=== PATIENT | female | born 1960 | race Caucasian/White ===

== ENCOUNTER 2017-07-02 20:25 | Inpatient (IN) | payer MEDICARE, MEDICAID ==
[~2017-07-02] VITALS: Ht 162.6 cm; Wt 66.7 kg
[2017-07-02] MEDS ORDERED: PHEN30CA PO (20:43)
[2017-07-02] MEDS ORDERED: PRED2.5T PO (20:44)
[2017-07-02] MEDS ORDERED: METH2.5T PO (20:45)
[2017-07-02] MEDS ORDERED: DIPH1TAB PO (20:45)
[2017-07-02] MEDS ORDERED: METO200T5 PO (20:46)
[2017-07-02] MEDS ORDERED: ABAT50SY INJ (20:47)
[2017-07-02] MEDS ORDERED: CHOL400T55 PO (20:47)
[2017-07-02] MEDS ORDERED: FOLI0.4T2 PO (20:48)
[2017-07-02 21:39] LABS: HEMOGLOBIN 15.8 g/dL (11.7-16.4); WHITE BLOOD COUNT 11.5 x10^3/uL (3.4-10)
[2017-07-02 21:47] LABS: ASPARTATE AMINO TRANSFERASE 19 U/L (15-37); BLOOD UREA NITROGEN 9 mg/dL (7-18)
[2017-07-02 21:55] LABS: IS PT STATUS REG ER OR PRE ER? YES
[2017-07-03] MEDS ORDERED: SODIUM CHLORIDE 0.9% 1,000 ML IV ONE (01:03)
[2017-07-03] MEDS ORDERED: ONDANSETRON 2MG/ML, 2ML IVPush PRN ×2 (01:30→02:00)
[2017-07-03] MEDS ORDERED: morphine SULFATE 10 MG/ML, 1ML IVPush PRN ×2 (01:30→02:00)
[2017-07-03] MEDS ORDERED: NS + 20MEQ KCL 1,000 ML IV SCH (01:50)
[2017-07-03] MEDS ORDERED: hydrALAzine 20 MG/ML, 1ML IVPush PRN (02:00)
[2017-07-03] MEDS ORDERED: TRAZODONE 50MG TABLET PO PRN (02:00)
[2017-07-03] MEDS ORDERED: ENOXAPARIN 40 MG/0.4 ML SQ SCH (02:00)
[2017-07-03] MEDS ORDERED: POTASSIUM CHLORIDE 20 MEQ TAB.ER.PRT PO ONE (02:00)
[2017-07-03] MEDS ORDERED: NITROGLYCERIN 0.4 MG BOTTLE (25 TABS) SL PRN (02:00)
[2017-07-03 02:16] VITALS: BP 158/83
[2017-07-03 03:04] LABS: BLOOD UREA NITROGEN 11 mg/dL (7-18)
[2017-07-03 03:29] LABS: IS PT STATUS REG ER OR PRE ER? NO
[2017-07-03] MEDS ORDERED: ALBUTEROL SULFATE 2.5 MG/3 ML NPPB PRN (04:30)
[2017-07-03] MEDS ORDERED: ASPIRIN 325 MG TABLET EC PO SCH (06:00)
[2017-07-03 08:00] VITALS: BP 154/82
[2017-07-03 08:03] LABS: IS PT STATUS REG ER OR PRE ER? NO
[2017-07-03] MEDS ORDERED: REGADENOSON 0.4 MG/5 ML SYRINGE ONE (08:35)
[2017-07-03] MEDS ORDERED: METHOTREXATE 2.5 MG TABLET PO SCH (09:00)
[2017-07-03] MEDS ORDERED: FOLIC ACID 1 MG TABLET PO SCH (09:00)
[2017-07-03] MEDS ORDERED: PHENYTOIN SODIUM 30 MG HOMEMEDPO SCH ×2 (09:00)
[2017-07-03] MEDS ORDERED: CHOLECALCIFEROL 400 UNITS TABLET PO SCH (09:00)
[2017-07-03] MEDS ORDERED: DIPHENOXYLATE/ATROPINE TABLET PO PRN (13:00)
[2017-07-03 14:00] VITALS: BP 144/84
== END 2017-07-03 16:30 | disposition home or self-care (01) | DRG 194 ==
LOC: ED 23:59 → EDIP 07-03 01:03 → 5SO 07-03 02:23
PROVIDERS: ADMIT Hospitalist; ATTEND Hospitalist
DX: J18.9 Pneumonia, unspecified organism (principal); J98.11 Atelectasis; I11.9 Hypertensive heart disease without heart failure; I10 Essential (primary) hypertension; F17.210 Nicotine dependence, cigarettes, uncomplicated; R07.89 Other chest pain; Z88.6 Allergy status to analgesic agent; Z88.8 Allergy status to other drugs, medicaments and biological substances; M06.9 Rheumatoid arthritis, unspecified; M81.0 Age-related osteoporosis without current pathological fracture; Q85.00 Neurofibromatosis, unspecified; Z79.52 Long term (current) use of systemic steroids; Z83.3 Family history of diabetes mellitus; Z82.49 Family history of ischemic heart disease and other diseases of the circulatory system; Z66 Do not resuscitate; J40 Bronchitis, not specified as acute or chronic
CPT/HCPCS: 36415; 71010; 78452; 80048; 80053; 83036; 83735; 83880; 84100; 84145; 84484; 85025; 87040; 87324; 93005; 93017; 99285; J1650; J2785; J3480; A9502; C9898; J7512

== ENCOUNTER 2019-01-15 23:27 | Emergency (ER) | payer MEDICARE, MEDICAID ==
[~2019-01-15] VITALS: Ht 162.6 cm; Wt 81.0 kg
[~2019-01-15 23:27] MED LIST: ABAT50SY INJ; CHOL400T55 PO; DIPH1TAB PO; FOLI0.4T2 PO; METH2.5T PO; METO200T47 PO; PHEN30CA PO; PRED2.5T PO
[2019-01-15] MEDS ORDERED: PRED10TA PO (23:41)
[2019-01-15] MEDS ORDERED: PHEN100C PO (23:41)
[2019-01-15] MEDS ORDERED: DIPH1TAB PO (23:41)
[2019-01-15] MEDS ORDERED: IBUP-1223 PO (23:41)
[2019-01-15] MEDS ORDERED: HYDROmorphone 2 MG/ML, 1ML ONE (23:44)
[2019-01-16] MEDS ORDERED: HYDROmorphone 1 MG/ML, 1ML INJ IM ONE
[2019-01-16] MEDS ORDERED: HYDROmorphone 2 MG/ML, 1ML IM ONE ×2 (01:30)
[2019-01-16 01:57] VITALS: BP 124/87
== END 2019-01-16 02:09 | disposition home or self-care (01) ==
LOC: ED 01-16 02:03
DX: S09.8XXA Other specified injuries of head, initial encounter (principal); S19.9XXA Unspecified injury of neck, initial encounter; G89.29 Other chronic pain; M54.2 Cervicalgia; F17.210 Nicotine dependence, cigarettes, uncomplicated; Z90.710 Acquired absence of both cervix and uterus; Z90.49 Acquired absence of other specified parts of digestive tract; W19.XXXA Unspecified fall, initial encounter; Y93.89 Activity, other specified; Y92.009 Unspecified place in unspecified non-institutional (private) residence as the place of occurrence of the external cause; Y99.8 Other external cause status
CPT/HCPCS: 72125; 96372; 99284; J1170

== ENCOUNTER 2019-03-29 11:24 | Emergency (ER) | payer MEDICAID, MEDICARE ==
[~2019-03-29] VITALS: Ht 162.6 cm; Wt 84.0 kg
[~2019-03-29 11:24] MED LIST changes: +IBUP-1223 PO; +PHEN100C PO; +PRED10TA PO
[2019-03-29 11:29] VITALS: BP 177/96
--- NOTE | 2019-03-29 11:40 | NUR ---
Note ummnatalio in EDM - 03/29/19 at 1143 by GALLO MOM STATES SHE NOTICED SWELLING ON HER SONS LEG WHILE ATTEMPTING TO APPLY SUNSCREEN THIS AM AND NOTICABLE BITE JONNY. PT STATES THE AREA IS NOT PAINFUL/ITCHY. AREA IS NOTABLY SWOLLEN, RED AND WARM.
--- NOTE | 2019-03-29 11:47 | NUR ---
PT STATES SHE INJURED HER L WRIST 3 WEEKS AGO, SHE PICKED UP A CEDAR BLOCK AND HEARD A POP. SHE STATES SHE THOUGHT IT WAS D/T HER HX OF RA; PT STATES HER WRIST HAS JUST GOTTON WORSE AND IS NOW SWELLING. CMS IS INTACT. NO OTHER COMPLAINTS OF PAIN.
--- NOTE | 2019-03-29 12:36 | NUR ---
Patient/Caregiver given discharge instructions and they have confirmed that they understand the instructions. Patient ambulatory with steady gait.
== END 2019-03-29 12:42 | disposition home or self-care (01) ==
LOC: ED 12:26
DX: S63.522A Sprain of radiocarpal joint of left wrist, initial encounter (principal); X58.XXXA Exposure to other specified factors, initial encounter; Y93.89 Activity, other specified; Y92.009 Unspecified place in unspecified non-institutional (private) residence as the place of occurrence of the external cause; Y99.8 Other external cause status
CPT/HCPCS: 29125; 99283

== ENCOUNTER 2019-04-15 19:09 | Emergency (ER) | payer MEDICARE, MEDICAID ==
[~2019-04-15] VITALS: Ht 170.2 cm; Wt 82.0 kg
[2019-04-15 21:26] VITALS: BP 102/55
== END 2019-04-15 21:28 | disposition home or self-care (01) ==
LOC: ED 19:23
DX: M06.822 Other specified rheumatoid arthritis, left elbow (principal); M06.821 Other specified rheumatoid arthritis, right elbow; M06.842 Other specified rheumatoid arthritis, left hand; M06.841 Other specified rheumatoid arthritis, right hand; M06.861 Other specified rheumatoid arthritis, right knee; F17.200 Nicotine dependence, unspecified, uncomplicated; Z90.49 Acquired absence of other specified parts of digestive tract; Z90.710 Acquired absence of both cervix and uterus
CPT/HCPCS: 96372; 99283; J1170; J7512